=== PATIENT | male | born 1995 | race Two or more races ===

== ENCOUNTER 2018-09-03 18:31 | Emergency (ER) | payer BC ==
[~2018-09-03] VITALS: Ht 175.3 cm; Wt 68.0 kg
[2018-09-03] MEDS ORDERED: NKM (18:37)
[2018-09-03 19:15] VITALS: BP 124/79
[2018-09-03] MEDS ORDERED: PROMETHAZINE-C118 M1 ORAL (19:22)
[2018-09-03] MEDS ORDERED: IBUPROFEN600 MG ORAL (19:22)
--- NOTE | 2018-09-03 19:22 | Emergency Room Report ---
History of Present Illness General Chief Complaint: Flu Like Symptoms Source: Patient Present Illness HPI 23-year-old male patient presents ER complaining of cough for the past several days. Reports cough with sputum. Denies hemoptysis. Denies recent travel outside the country. Denies smoking. Denies cigarette or marijuana use. Denies abdominal pain. Denies vomiting diarrhea. Reports up-to-date on vaccinations. States his been taking Tessalon Perles without relief of symptoms. Denies other aggravating or relieving factors. Denies fever, chest pain, shortness of breath. Denies history of asthma or heart disease. Also complaining of sore throat during this time. Allergies: Coded Allergies: CIPROFLOXACIN (Verified Allergy, Unknown, 09/03/18) GUAIFENESIN (Verified Allergy, Unknown, 09/03/18) Patient History Past Medical History: see triage record Reviewed Nursing Documentation: PMH: Agreed; PSxH: Agreed Nursing Documentation-PMH Past Medical History: No Stated History Review of Systems All Other Systems: negative except mentioned in HPI Physical Exam Vital Signs Date Time Temp Pulse Resp B/P (MAP) Pulse Ox O2 Delivery O2 Flow Rate FiO2 09/03/18 18:34 98.6 95 20 132/83 98 Room Air Sp02 EP Interpretation: reviewed, normal General Appearance: well appearing, no apparent distress, alert, GCS 15, non- toxic Head: normocephalic, atraumatic Eyes: bilateral eye normal inspection, bilateral eye PERRL ENT: hearing grossly normal, normal pharynx, no angioedema, normal voice, TMs + canals normal, uvula midline, moist mucus membranes Neck: normal inspection, full range of motion, no meningismus, no bony tend Respiratory: lungs clear, normal breath sounds, no rhonchi, no respiratory distress, no accessory muscle use, no wheezing, speaking full sentences Cardiovascular #1: regular rate, rhythm, no edema Musculoskeletal: back normal, digits/nails normal, gait/station normal, normal range of motion, non-tender, no calf tenderness, Louis's Sign negative Neurologic: alert, oriented x3, responsive, motor strength/tone normal, sensory intact Psychiatric: mood/affect normal Skin: no rash Medical Decision Making PA Attestation Dr. Mary is my supervising Physician whom patient management has been discussed with. Diagnostic Impression: Primary Impression: Upper respiratory infection ER Course Pt presents to ED c/o cough. DDX considered but are not limited to influenza, viral URI, pneumonia, strep throat, rhinitis, sinusitis, otitis media, otitis externa. VITAL SIGNS are WNL, patient is afebrile. ER COURSE: Lungs clear to auscultation, no wheezes, rhonci or rales. patient afebrile. Low suspicion for pneumonia, will not order CXR at this time. no tonsillar exudates, no pharyngeal erythema, history of cough, no fever, no stridor, uvula midline, low suspicion for peritonsillar abscess. Likely viral etiology of symptoms. Symptomatic treatment. drink plenty of fluids. Salt water gargles for sore throat. Followup with PCP for further treatment and/or referral as needed. ER precautions given. DISCHARGE: At this time pt is stable for d/c to home. Patient is resting comfortably, in no acute distress, nontoxic appearing. Patient to take medications as instructed Will provide with patient care instructions and any necessary prescriptions. Care plan and follow-up instructions provided. Patient instructed to follow-up with primary care provider in 3 - 5 days. Patient questions asked and answered. Patient reports understanding and agreement to treatment plan. ER precautions given. Patient instructed to return to ER immediately for any new or worsening of symptoms including but not limited to increasing SOB, persistent fever, intractable vomiting. - Please note that this Emergency Department Report was dictated using [employer] technology software, occasionally this can lead to erroneous entry secondary to interpretation by the dictation equipment. Last Vital Signs Date Time Temp Pulse Resp B/P (MAP) Pulse Ox O2 Delivery O2 Flow Rate FiO2 09/03/18 19:15 98.6 84 20 124/79 99 Room Air Status: improved Disposition: HOME, SELF-CARE Condition: Stable Scripts Codeine/Promethazine Hcl* (PROMETHAZINE-CODEINE SYRUP*) 118 Ml Syrup 5 ML ORAL Q6H PRN for For Cough, #118 ML 0 Refills Prov: Jonh Briseno P.A. 09/03/18 Ibuprofen* (MOTRIN*) 600 Mg Tablet 600 MG ORAL Q8H PRN for For Pain, #30 TAB 0 Refills Prov: Jonh Briseno P.A. 09/03/18 Patient Instructions: Upper Respiratory Infection, Adult, [id number] Additional Instructions: Followup with primary care provider in 3 -5 days. Salt water gargles Take Tylenol for pain and fever symptoms Drink plenty of water. Take medications as directed. Patient questions asked and answered. ER precautions given, patient instructed to return to ER immediately for any new or worsening of symptoms including but not limited to intractable vomiting, difficulty breathing, inability to eat. Jonh Briseno Sep 03, 2018 19:22
[2018-09-03 19:27] VITALS: BP 124/79
--- NOTE | 2018-09-03 19:28 | NUR ---
ER DISCHARGE NOTE: Patient is cleared to be discharged per ERMD, pt is aox4, on room air, with stable vital signs. pt was given dc and prescription instructions, pt was able to verbalize understanding, pt id band removed without complications. pt is able to ambulate with steady gait. pt took all belongings.
== END 2018-09-03 19:27 | disposition home or self-care (01) ==
LOC: EMR 18:54
DX: J06.9 Acute upper respiratory infection, unspecified (principal); Z88.8 Allergy status to other drugs, medicaments and biological substances
CPT/HCPCS: 99283

== ENCOUNTER 2019-01-28 17:03 | Emergency (ER) | payer BC ==
[~2019-01-28] VITALS: Ht 180.3 cm; Wt 69.9 kg
[~2019-01-28 17:03] MED LIST: IBUPROFEN600 MG ORAL; NKM; PROMETHAZINE-C118 M1 ORAL
[2019-01-28 17:22] VITALS: BP 125/86
--- NOTE | 2019-01-28 17:43 | Emergency Room Report ---
History of Present Illness General Chief Complaint: Upper Respiratory Illness Source: Patient Present Illness HPI 23-year-old male with no significant past medical history here complaining of 3 days of productive cough with minimal phlegm production. Denies fever and chills, however complains of sore throat. Denies congestion, abdominal pain, shortness of breath, wheezing, chest pain, nausea vomiting. Has taken over-the- counter cough medication with minimal relief. Denies tobacco smoke. Denies recent travel. Allergies: Coded Allergies: CIPROFLOXACIN (Verified Allergy, Unknown, 09/03/18) GUAIFENESIN (Verified Allergy, Unknown, 09/03/18) Patient History Past Medical History: see triage record Past Surgical History: none Pertinent Family History: none Immunizations: UTD Reviewed Nursing Documentation: PMH: Agreed; PSxH: Agreed Nursing Documentation-PMH Past Medical History: No Stated History Review of Systems All Other Systems: negative except mentioned in HPI Physical Exam Vital Signs Date Time Temp Pulse Resp B/P (MAP) Pulse Ox O2 Delivery O2 Flow Rate FiO2 01/28/19 17:22 99.0 92 19 125/86 (99) 99 Room Air Sp02 EP Interpretation: reviewed, normal General Appearance: no apparent distress, alert, GCS 15, non-toxic Head: normocephalic, atraumatic Eyes: bilateral eye normal inspection, bilateral eye PERRL ENT: TMs + canals normal, moist mucus membranes, pharyngeal erythema Neck: full range of motion, supple/symm/no masses Respiratory: chest non-tender, lungs clear, normal breath sounds, speaking full sentences Cardiovascular #1: regular rate, rhythm, no edema Cardiovascular #2: 2+ carotid (R), 2+ carotid (L), 2+ radial (R), 2+ radial (L) , 2+ dorsalis pedis (R), 2+ dorsalis pedis (L) Gastrointestinal: normal bowel sounds, non tender, soft, non-distended, no guarding, no rebound Rectal: deferred Musculoskeletal: back normal, gait/station normal, normal range of motion, non- tender, calf tenderness Neurologic: alert, oriented x3, responsive, motor strength/tone normal, sensory intact, speech normal Psychiatric: judgement/insight normal, memory normal, mood/affect normal, no suicidal/homicidal ideation Skin: no rash Lymphatic: no adenopathy Medical Decision Making PA Attestation All diagnoses and treatment plans were reviewed and discussed with my supervising physician Dr. Langley Diagnostic Impression: Primary Impression: Pharyngitis ER Course 23-year-old male with no significant past medical history here complaining of 3 days of productive cough with minimal phlegm production. Denies fever and chills, however complains of sore throat. Denies congestion, abdominal pain, shortness of breath, wheezing, chest pain, nausea vomiting. Has taken over-the- counter cough medication with minimal relief. Denies tobacco smoke. Denies recent travel. Ddx considered but are not limited to: strep pharyngitis, URI, tonsilitis, peritonsillar absacess, influneza Vital signs: are WNL, pt. is afebrile H&PE are most consistent with: Pharyngitis ORDERS: Azithromycin, Phenergan DM ED INTERVENTIONS: None required at this time. DISCHARGE: At this time pt. is stable for d/c to home. Will provide printed patient care instructions, and any necessary prescriptions. Care plan and follow up instructions have been discussed with the patient prior to discharge. Take medication as directed follow-up with a primary care provider if no improvement with the emergency room Last Vital Signs Date Time Temp Pulse Resp B/P (MAP) Pulse Ox O2 Delivery O2 Flow Rate FiO2 01/28/19 17:25 92 19 Room Air 01/28/19 17:22 99.0 125/86 99 Disposition: HOME, SELF-CARE Condition: Stable Scripts Promethazine/Dextromethorphan (Promethazine-Dm Syrup) 473 Ml Syrup 1 TSP ORAL Q6H PRN for For Cough, #118 ML 0 Refills Prov: Frank Alvarado 01/28/19 Azithromycin* (ZITHROMAX*) 250 Mg Tablet 250 MG ORAL DAILY, #6 TAB 0 Refills Take two tables once daily for 1 day, then one tablet once daily for 4 days. Prov: Frank Alvarado 01/28/19 Patient Instructions: Pharyngitis, [id number] Frank Alvaraod Jan 28, 2019 17:43
[2019-01-28] MEDS ORDERED: PHENERGAN6.25 MG/5 ORAL (17:44)
[2019-01-28] MEDS ORDERED: ZITHROMAX250 MG ORAL (17:44)
[2019-01-28 17:48] VITALS: BP 125/86
--- NOTE | 2019-01-28 17:48 | NUR ---
ER DISCHARGE NOTE: Patient is cleared to be discharged per ERMD, pt is aox4, on room air, with stable vital signs. pt was given dc and prescription instructions, pt was able to verbalize understanding, pt id band removed. pt is able to ambulate with steady gait. pt took all belongings.
== END 2019-01-28 17:48 | disposition home or self-care (01) ==
LOC: EMR 17:42
DX: J02.9 Acute pharyngitis, unspecified (principal); Z88.1 Allergy status to other antibiotic agents
CPT/HCPCS: 99282

== ENCOUNTER 2019-03-17 13:41 | Emergency (ER) | payer BC ==
[~2019-03-17] VITALS: Ht 177.8 cm; Wt 65.8 kg
[~2019-03-17 13:41] MED LIST changes: +PHENERGAN6.25 MG/5 ORAL; +ZITHROMAX250 MG ORAL
[2019-03-17 14:05] VITALS: BP 129/81
[2019-03-17] MEDS ORDERED: PROMETHAZINE-D118 ML ORAL (15:01)
--- NOTE | 2019-03-17 15:04 | NUR ---
ED Nurse Note: christine ling done pt requesting med refill for cough medicine.
[2019-03-17 15:10] VITALS: BP 127/80
--- NOTE | 2019-03-17 16:48 | NUR ---
ED Nurse Note: no nsg orders pt seen and d/c'd by ermd . ER DISCHARGE NOTE: Patient is cleared to be discharged per ERMD, pt is aox4, on room air, with stable vital signs. pt was given dc and prescription instructions, pt was able to verbalize understanding, pt id band and without complications. pt is able to ambulate with steady gait. pt took all belongings.
--- NOTE | 2019-03-19 13:50 | Emergency Room Report ---
History of Present Illness General Chief Complaint: Medication Refill Source: Patient Present Illness HPI 23-year-old male presents ED for evaluation. Is here for medication refill. Was seen here last week for URI symptoms. Was prescribed promethazine/codeine. States when he was traveling to [place] he spilled the medication. States he is here for refill. States his symptoms have overall improved but he still has somewhat of a cough. Productive with whitish phlegm. Denies fevers or chills. Denies sore throat or earache. No other aggravating relieving factors. Denies any other associated symptoms Allergies: Coded Allergies: CIPROFLOXACIN (Verified Allergy, Unknown, 09/03/18) GUAIFENESIN (Verified Allergy, Unknown, 09/03/18) Patient History Past Medical History: none Past Surgical History: none Pertinent Family History: none Social History: Denies: smoking, alcohol use, drug use Immunizations: UTD Reviewed Nursing Documentation: PMH: Agreed; PSxH: Agreed Nursing Documentation-PMH Past Medical History: No Stated History Review of Systems All Other Systems: negative except mentioned in HPI Physical Exam Vital Signs Date Time Temp Pulse Resp B/P (MAP) Pulse Ox O2 Delivery O2 Flow Rate FiO2 03/17/19 13:59 99.3 91 17 129/81 (97) 99 Room Air Sp02 EP Interpretation: reviewed, normal General Appearance: no apparent distress, alert, GCS 15, non-toxic Head: normocephalic, atraumatic Eyes: bilateral eye normal inspection, bilateral eye PERRL ENT: hearing grossly normal, normal pharynx, no angioedema, normal voice Neck: full range of motion, supple/symm/no masses Respiratory: chest non-tender, lungs clear, normal breath sounds, speaking full sentences Cardiovascular #1: regular rate, rhythm, no edema Cardiovascular #2: 2+ carotid (R), 2+ carotid (L), 2+ radial (R), 2+ radial (L) , 2+ dorsalis pedis (R), 2+ dorsalis pedis (L) Gastrointestinal: normal bowel sounds, non tender, soft, non-distended, no guarding, no rebound Rectal: deferred Genitourinary: normal inspection, no CVA tenderness Musculoskeletal: back normal, gait/station normal, normal range of motion, non- tender Neurologic: alert, oriented x3, responsive, motor strength/tone normal, sensory intact, speech normal Psychiatric: judgement/insight normal, memory normal, mood/affect normal, no suicidal/homicidal ideation Reflexes: 3+ bicep (R), 3+ bicep (L), 3+ tricep (R), 3+ tricep (L), 3+ knee (R) , 3+ knee (L) Lymphatic: no adenopathy Medical Decision Making Diagnostic Impression: Primary Impression: Encounter for medication refill Additional Impression: Upper respiratory infection Qualified Codes: J06.9 - Acute upper respiratory infection, unspecified ER Course 23-year-old male presents to ED refill of his medication. spilled his promethazine/codeine hospital course: Placed in stretcher. I saw this patient last week. I prescribed him promethazine/codeine. Patient does not have a history of narcotic dependence. CURES doesnt show any narcotic history. However we did agreed to provide the patient a prescription for Promethazine DM instead. Patient agrees to this. Safe for discharge for close outpatient follow-up. States he has a PMD Diagnosis-encounter for medication refill, URI Stable and discharged to home with prescription for promethazine/DM. Followup with PMD. Return to ED if symptoms recur or worsen Last Vital Signs Date Time Temp Pulse Resp B/P (MAP) Pulse Ox O2 Delivery O2 Flow Rate FiO2 03/17/19 15:10 99.3 89 17 127/80 100 Room Air Status: improved Disposition: HOME, SELF-CARE Condition: Stable Scripts D-Methorphan Hb/Prometh Hcl* (PROMETHAZINE-DM SYRUP*) 118 Ml Syrup 5 ML ORAL Q6H PRN for For Cough, #118 ML 0 Refills Prov: El Tello MD 03/17/19 Referrals: NON PHYSICIAN (PCP) Patient Instructions: Medicine Refill at the Emergency Department El Tello MD Mar 19, 2019 13:50
== END 2019-03-17 15:30 | disposition home or self-care (01) ==
LOC: EMR 15:30
DX: J06.9 Acute upper respiratory infection, unspecified (principal); Z76.0 Encounter for issue of repeat prescription; Z88.1 Allergy status to other antibiotic agents; Z88.8 Allergy status to other drugs, medicaments and biological substances
CPT/HCPCS: 99282

== ENCOUNTER 2019-05-07 09:49 | Emergency (ER) | payer BC ==
[~2019-05-07] VITALS: Ht 177.8 cm; Wt 68.9 kg
[~2019-05-07 09:49] MED LIST changes: +PROMETHAZINE-D118 ML ORAL
[2019-05-07 09:53] VITALS: BP 133/92
[2019-05-07] MEDS ORDERED: AFRIN15 ML NASAL (10:46)
[2019-05-07] MEDS ORDERED: PSEUDOEPHEDRINE60 MG PO (10:46)
[2019-05-07] MEDS ORDERED: ALBUTEROL SULF8.5 GM INH (10:46)
[2019-05-07 10:55] VITALS: BP 135/89
--- NOTE | 2019-05-07 13:58 | Emergency Room Report ---
History of Present Illness General Chief Complaint: Sore Throat Source: Patient Present Illness HPI 23-year-old male presenting with sore throat for 9 days. He reports his symptoms temporarily improved for 2 to 3 days and restarted on Monday. He was using cough drops without improvement. Patient was supposed to see primary care doctor at [facility] but was unable to make appointment. Patient came to emergency room because symptoms were worsening today. Patient states his immunizations are up-to-date. Patient did not get influenza vaccination this year Allergies: Coded Allergies: CIPROFLOXACIN (Verified Allergy, Unknown, 09/03/18) GUAIFENESIN (Verified Allergy, Unknown, 09/03/18) Patient History Past Medical History: none Past Surgical History: none Nursing Documentation-[facility] Past Medical History: No Stated History Review of Systems Constitutional: Denies: chills, fever Eye: Denies: eye pain, blurred vision ENT: Reports: throat pain, mouth pain, nasal discharge Respiratory: Reports: cough; Denies: shortness of breath, wheezing Cardiovascular: Denies: chest pain, palpitations Gastrointestinal: Denies: abdominal pain, vomiting Genitourinary: Denies: dysuria, hematuria Skin: Denies: rash, lesions Neurological: Denies: headache, numbness Physical Exam Vital Signs Date Time Temp Pulse Resp B/P (MAP) Pulse Ox O2 Delivery O2 Flow Rate FiO2 05/07/19 09:53 98.4 98 18 133/92 98 Room Air Sp02 EP Interpretation: reviewed, normal General Appearance: no apparent distress, alert, GCS 15, non-toxic Head: normocephalic, atraumatic Eyes: bilateral eye normal inspection, bilateral eye PERRL ENT: hearing grossly normal, no angioedema, normal voice, nasal congestion, pharyngeal erythema Neck: full range of motion, supple/symm/no masses Respiratory: chest non-tender, lungs clear, normal breath sounds, speaking full sentences Cardiovascular #1: regular rate, rhythm, no edema Cardiovascular #2: 2+ radial (R), 2+ radial (L) Gastrointestinal: normal bowel sounds, non tender, soft, non-distended, no guarding, no rebound Rectal: deferred Musculoskeletal: back normal, gait/station normal, normal range of motion, non- tender, calf tenderness Neurologic: alert, oriented x3, responsive, motor strength/tone normal, sensory intact, speech normal Psychiatric: judgement/insight normal, memory normal, mood/affect normal, no suicidal/homicidal ideation Lymphatic: no adenopathy Medical Decision Making Diagnostic Impression: Primary Impression: Sore throat Additional Impression: Encounter for medication refill ER Course 23-year-old male with sore throat for 9 days improved temporarily worsening today patient using cough drops without improvement Differential includes viral illness, strep throat, nasal congestion with postnasal drip, upper respiratory infection, pneumonia. Patient has no fever less likely signs of pneumonia as lungs are clear on exam. Recommended influenza testing as patient has not been immunized and is present in this time of year. Patient is in a [place] to get to class, he did not want to wait for influenza testing. Patient asked to have refill on his albuterol nebulizer, which I offered to refill once at this time given that he does have cough associated with his sore throat. However patient left prior to getting prescriptions and discharge paperwork. Nurse was approaching his room when he was found to not be there anymore. Unable to give warning her return precautions to patient prior to discharge. Last Vital Signs Date Time Temp Pulse Resp B/P (MAP) Pulse Ox O2 Delivery O2 Flow Rate FiO2 05/07/19 10:55 98.3 90 16 135/89 100 Room Air Disposition: HOME, SELF-CARE Condition: Stable Scripts Oxymetazoline Hcl* (AFRIN*) 15 Ml Mist 2 SPRAYS NASAL TWICE A DAY for 3 Days, #15 ML 0 Refills Prov: Daniele Le M.D. 05/07/19 Pseudoephedrine Hcl* (SUDAFED*) 60 Mg Tablet 60 MG PO Q6H for 7 Days, #14 TAB Prov: Daniele Le M.D. 05/07/19 Albuterol Sulfate* (ALBUTEROL SULFATE MDI*) 8.5 Gm Hfa.aer.ad 2 PUFF INH Q4H PRN for cough/wheezing, #1 EA 0 Refills Prov: Daniele Le M.D. 05/07/19 Patient Instructions: Sore Throat Additional Instructions: Follow-up with your primary care for reevaluation. Take medications as prescribed. Daniele Le M.D. May 07, 2019 13:58
== END 2019-05-07 10:55 | disposition home or self-care (01) ==
LOC: EMR 10:35
DX: R07.0 Pain in throat (principal); Z88.8 Allergy status to other drugs, medicaments and biological substances
CPT/HCPCS: 99282

== ENCOUNTER 2019-10-15 19:56 | Emergency (ER) | payer BC ==
[~2019-10-15] VITALS: Ht 177.8 cm; Wt 67.1 kg
[~2019-10-15 19:56] MED LIST changes: +AFRIN15 ML NASAL; +ALBUTEROL SULF8.5 GM INH; +PSEUDOEPHEDRINE60 MG PO
[2019-10-15 20:00] VITALS: BP 136/75
[2019-10-15 20:15] VITALS: BP 128/73
--- NOTE | 2019-10-15 20:52 | Emergency Room Report ---
History of Present Illness General Chief Complaint: Upper Respiratory Illness Source: Patient Present Illness HPI Patient presents with request of promethazine with codeine Reports that he has a lingering cough Reports that he was not able to see his primary physician for refill Denies any chest pain denies any shortness of breath sensation He reports that he has had covid-19 testing which was negative recently denies any neck pain or photophobia denies any productive cough Allergies: Coded Allergies: CIPROFLOXACIN (Verified Allergy, Unknown, 09/03/18) GUAIFENESIN (Verified Allergy, Unknown, 09/03/18) COVID-19 Screening Contact w/high risk pt: No Recent Travel to affected area: No Experienced COVID-19 symptoms?: Yes COVID-19 symptoms experienced: Cough Patient History Past Medical History: see triage record Reviewed Nursing Documentation: PMH: Agreed; PSxH: Agreed Nursing Documentation-PMH Past Medical History: No Stated History Review of Systems All Other Systems: negative except mentioned in HPI Physical Exam Vital Signs Date Time Temp Pulse Resp B/P (MAP) Pulse Ox O2 Delivery O2 Flow Rate FiO2 10/15/19 19:57 98.6 102 18 136/75 (95) 98 Room Air Sp02 EP Interpretation: reviewed, normal General Appearance: well appearing, no apparent distress Head: normocephalic, atraumatic Eyes: bilateral eye PERRL, bilateral eye EOMI ENT: hearing grossly normal, normal pharynx, TMs + canals normal, uvula midline Neck: full range of motion, supple, no meningismus, no bony tend Respiratory: lungs clear, normal breath sounds, no rhonchi, no respiratory distress, no retraction, no accessory muscle use Cardiovascular #1: normal peripheral pulses, regular rate, rhythm, no edema, no gallop, no JVD, no murmur Gastrointestinal: normal bowel sounds, non tender, soft, no mass, no organomegaly, non-distended, no guarding, no hernia, no pulsatile mass, no rebound Genitourinary: no CVA tenderness Musculoskeletal: back normal Neurologic: motor strength/tone normal, seat cover maker III-XII nml as tested, oriented x3 , sensory intact, responsive Psychiatric: mood/affect normal Skin: no rash Lymphatic: normal inspection, no adenopathy Medical Decision Making Diagnostic Impression: Primary Impression: cough ER Course Patient has a benign medical evaluation Multiple differentials including but not limited to covid-19, pneumonia, URI entertained On review of CURES, patient does have multiple opiate medication prescribed also has promethazine with codeine prescribed by 3 different providers He is encouraged to follow closely with primary physician And evaluate further the source and the need for cough medication Last Vital Signs Date Time Temp Pulse Resp B/P (MAP) Pulse Ox O2 Delivery O2 Flow Rate FiO2 10/15/19 20:15 98.6 102 18 128/73 98 Room Air Status: unchanged Disposition: HOME, SELF-CARE Condition: Stable Referrals: NON PHYSICIAN (PCP) [facility] Radha Meneses [facility] Patient Instructions: Cough, Adult, [id number] Additional Instructions: Please follow with your primary physician. Please consult with pharmacy regarding safe OTC cough medicine. Jayshree Delaney DO Oct 15, 2019 20:52
== END 2019-10-15 20:15 | disposition home or self-care (01) ==
LOC: EMR 20:15
DX: R05 Cough (principal); Z88.8 Allergy status to other drugs, medicaments and biological substances
CPT/HCPCS: 99282